=== PATIENT | female | born 1930 | race Caucasian/White ===

== ENCOUNTER 2016-03-31 08:48 | Inpatient (IN) | payer MEDICARE ==
[2016-03-31 09:33] LABS: ABSOLUTE BASOPHILS # (AUTO) 0.1 10^3/uL (0.0-0.2); ABSOLUTE EOSINOPHILS # (AUTO) 0.1 10^3/uL (0.0-0.6); ABSOLUTE LYMPHOCYTES (AUTO) 1.8 10^3/uL (0.5-4.7); ABSOLUTE MONOCYTES (AUTO) 1.3 10^3/uL (0.1-1.4); ABSOLUTE NEUT (AUTO) 7.6 10^3/uL (1.7-8.2); BASOPHILS % (AUTO) 0.8 % (0-2); EOSINOPHILS % (AUTO) 1.3 % (0-6); HEMOGLOBIN 11.1 g/dL (12.0-15.5); HGB HCT DIFFERENCE 0.3; LYMPHOCYTES % (AUTO) 16.2 % (13-45); MEAN CORPUSCULAR HEMOGLOBIN 30.9 pg (27.0-33.4); MEAN CORPUSCULAR HGB CONC 33.6 g/dL (32.0-36.0); MEAN CORPUSCULAR VOLUME 92 fl (80-97); MONOCYTES % (AUTO) 12.2 % (3-13); RED BLOOD COUNT 3.59 10^6/uL (3.72-5.28); RED CELL DISTRIBUTION WIDTH 14.7 % (11.5-14.0); SEGMENTED NEUTROPHILS % (AUTO) 69.5 % (42-78); WHITE BLOOD COUNT 10.9 10^3/uL (4.0-10.5)
--- NOTE | 2016-03-31 09:35 | ER Document Report ---
ED Respiratory Problem <KALEY GOLD - Last Filed: 03/31/16 11:41> - General Mode of Arrival: Medic Information source: Patient TRAVEL OUTSIDE OF THE [place] IN LAST 30 DAYS: No - HPI Patient complains to provider of: Short of breath Onset: Other - see above Duration: Worse/persistent Quality of pain: No pain Associated symptoms: Other - see narrative Similar symptoms previously: Yes Recently seen / treated by doctor: Yes <KAMLESH OLIVERA - Last Filed: 03/31/16 17:05> - General Chief Complaint: Breathing Difficulty Stated Complaint: DIFFICULTY BREATHING Notes: Patient is an 85 year old female that presents to the emergency department today with complaints of shortness of breath. EMS reports the patient was 85% on room air on their arrival. Patient states she has had to sleep in a chair the last month because she cannot lie flat. Patient states she is constipated. Patient denies any recent falls. (KAMLESH OLIVERA) - Related Data Allergies/Adverse Reactions: amlodipine besylate [From Lotrel] Allergy (Verified 11/17/12 09:30) RASH benazepril HCl [From Lotrel] Allergy (Verified 11/17/12 09:30) RASH Home Medications: Current Home Medications Diphenhydramine HCl [Unisom] 50 mg PO QHS PRN 03/31/16 [History] Furosemide [Lasix 20 mg Tablet] 20 mg PO BID 03/31/16 [History] Ipratropium/Albuterol Sulfate [Combivent Respimat 4 gm Mdi] 1 puff IH Q4 [History] Past Medical History - General Information source: Patient - Social History Smoking Status: Unknown if Ever Smoked Cigarette use (# per day): No Frequency of alcohol use: None Drug Abuse: None Lives with: Family Family History: Reviewed & Not Pertinent, Other - Asthma - Past Medical History Cardiac Medical History: Reports: Hx Hypertension Past Surgical History: Reports: Hx Abdominal Surgery - AAA STENT, HERNIA - Immunizations Hx Diphtheria, Pertussis, Tetanus Vaccination: No - unsure Hx Pneumococcal Vaccination: 12/28/13 <KAMLESH OLIVERA - Last Filed: 03/31/16 17:05> Review of Systems - Review of Systems Constitutional: No symptoms reported EENT: No symptoms reported Cardiovascular: No symptoms reported Respiratory: See HPI, Short of breath Gastrointestinal: See HPI, Constipation Genitourinary: No symptoms reported Female Genitourinary: No symptoms reported Musculoskeletal: No symptoms reported Skin: No symptoms reported Hematologic/Lymphatic: No symptoms reported Neurological/Psychological: No symptoms reported -: Yes All other systems reviewed and negative <KAMLESH OLIVERA - Last Filed: 03/31/16 17:05> Physical Exam <KALEY GOLD - Last Filed: 03/31/16 11:41> - General General appearance: Alert In distress: Mild - HEENT Head: Normocephalic, Atraumatic Eyes: Normal Cornea: Normal - Respiratory Respiratory status: Respiratory distress - mild, mild conversational dyspnea Chest status: Nontender Chest palpation: Other - Pectus excavatum - Cardiovascular Rhythm: Regular Heart sounds: Normal auscultation - Abdominal Inspection: Normal Distension: No distension Tenderness: Nontender - Back Back: Normal, Nontender - Extremities General lower extremity: Other - trace bilateral pedal edema, symmetric - Neurological Neuro grossly intact: Yes Cognition: Normal Orientation: AAOx4 - Psychological Associated symptoms: Normal affect, Normal mood - Skin Skin Temperature: Warm Skin Moisture: Dry Skin Color: Normal <KAMLESH OLIVERA - Last Filed: 03/31/16 17:05> - Vital signs Vitals: Resp BP Pulse Ox 25 H 203/104 H 93 03/31/16 08:51 03/31/16 08:51 03/31/16 08:51 (KALEY GOLD) (KAMLESH OLIVERA) - Skin Notes: no cellulitic component (KAMLESH OLIVERA) Course - Laboratory Result Diagrams: 03/31/16 08:52 03/31/16 08:52 <KALEY GOLD - Last Filed: 03/31/16 11:41> - Laboratory Result Diagrams: 03/31/16 08:52 03/31/16 08:52 <KAMLESH OLIVERA - Last Filed: 03/31/16 17:05> - Re-evaluation Re-evalutation: 03/31/16 11:40 I personally performed the services described in the documentation, reviewed and edited the documentation which was dictated to my scribe in my presence, and it accurately records my words and actions. Patient presents emergency department severe respiratory distress ambulance call from him 82% on room air with rails. Hypertensive 210/111 seen and quickly evaluated at the bedside severe respiratory distress chest x-ray showing congestive heart failure peripheral edema. Patient was immediately placed on 100 of Lasix nitroglycerin drip at 25 mics and BiPAP machine. Initial pH 7.31 PCO2 of 62.3 PO2 of 73.7 bicarbonate 30.4. Patient did extremely well on the BiPAP machine blood pressure with nitro drip came down to 110/62 so we held that 96% on BiPAP machine awake and alert with. No acute EKG changes or troponin elevation spoke with the attending physician was going admit her to the hospital to the [facility] unit on BiPAP machine further assessment and evaluation. (KALEY GOLD) - Vital Signs Vital signs: Temp Pulse Resp BP Pulse Ox 97.4 F 77 16 138/71 H 99 03/31/16 15:12 03/31/16 15:46 03/31/16 15:46 03/31/16 15:12 03/31/16 15:46 (KALEY GOLD) (KAMLESH OLIVERA) - Laboratory Laboratory results interpreted by me: 03/31/16 03/31/16 03/31/16 08:52 08:52 08:52 WBC 10.9 H RBC 3.59 L Hgb 11.1 L Hct 33.0 L RDW 14.7 H Carbonic Acid ABG pH ABG pCO2 ABG pO2 ABG HCO3 ABG Total CO2 ABG O2 Saturation Potassium 3.4 L Chloride 91 L Carbon Dioxide 32 H Glucose 214 H NT-Pro-B Natriuret Pep 8540 H 03/31/16 09:39 WBC RBC Hgb Hct RDW Carbonic Acid 1.88 H ABG pH 7.31 L ABG pCO2 62.3 H ABG pO2 73.7 L ABG HCO3 30.4 H ABG Total CO2 32.3 H ABG O2 Saturation 93.0 L Potassium Chloride Carbon Dioxide Glucose NT-Pro-B Natriuret Pep (KALEY GOLD) Critical Care Note - Critical Care Note Total time excluding time spent on procedures (mins): 60 <KALEY GOLD - Last Filed: 03/31/16 11:41> Scribe Documentation - Scribe Written by Tiffanie:: Tiffanie Ventura, 1601 (03/31/2016) acting as scribe for :: Juan J <KAMLESH OLIVERA - Last Filed: 03/31/16 17:05>
[2016-03-31 09:45] LABS: ANION GAP 15 (5-19); BLOOD UREA NITROGEN 17 mg/dL (7-20); CALCIUM 9.2 mg/dL (8.4-10.2); CARBON DIOXIDE 32 mmol/L (22-30); CHLORIDE 91 mmol/L (98-107); CREATININE RESULT 0.86 mg/dL (0.52-1.25); GLUCOSE 214 mg/dL (75-110); POTASSIUM 3.4 mmol/L (3.6-5.0); SODIUM 137.9 mmol/L (137-145)
[2016-03-31] MEDS ORDERED: FUROSEMIDE INJ/PF 100 MG/10 ML SDV IV ONE (09:50)
[2016-03-31] MEDS ORDERED: NITROGLYCERIN/D5W 250 ML IV PRN (09:50)
[2016-03-31 09:53] LABS: ARTERIAL BLOOD BASE EXCESS 2.8 mmol/L
[2016-03-31 09:54] LABS: CREATINE KINASE MB 0.4 ng/mL (<4.55)
[2016-03-31] MEDS ORDERED: CEFTRIAXONE INJ 1000 MG VIAL IV ONE (09:56)
[2016-03-31] MEDS ORDERED: AZITHROMYCIN INJ 500 MG VIAL IV ONE (09:57)
[2016-03-31 09:59] LABS: TROPONIN I 0.064 ng/mL
[2016-03-31] MEDS ORDERED: POTASSIUM CHLORIDE 10 MEQ TABLET.SA PO ONE (13:30)
[2016-03-31] MEDS ORDERED: ALBUTEROL SULFATE 0.083% NEB 2.5 MG/3 ML AMPUL NEB PRN ×2 (13:45→21:18)
[2016-03-31] MEDS ORDERED: FUROSEMIDE INJ/PF 20 MG/2 ML SDV IV ONE (14:00)
[2016-03-31] MEDS ORDERED: DOXYCYCLINE HYCLATE 100 MG TABLET PO ONE (14:00)
[2016-03-31] MEDS ORDERED: (PENDING PHARMACY ID) (Clonidine Hcl [Catapres 0.3 Mg Tablet] 0.3 MG) PO SCH (14:00)
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
[2016-03-31] MEDS ORDERED: ENOXAPARIN SODIUM INJ 30 MG/0.3 ML DISP.SYRIN SUBCUT ONE (15:00)
[2016-03-31 16:08] LABS: CREATINE KINASE MB 0.53 ng/mL (<4.55)
[2016-03-31 16:15] LABS: TROPONIN I 0.054 ng/mL
[2016-03-31] MEDS: DOCUSATE SODIUM 100 MG CAPSULE PO SCH (17:20)
[2016-03-31] MEDS ORDERED: LORAZEPAM INJ 2 MG/1 ML VIAL ONE (18:55)
[2016-03-31] MEDS ORDERED: LORAZEPAM INJ 2 MG/1 ML VIAL IV ONE (18:57)
--- NOTE | 2016-03-31 19:04 | Progress Note ---
Provider Note Provider Note: Resp failure: Repeat ABG. Check CT chest. Hold ARB due to contrast.
[2016-03-31 20:10] LABS: ARTERIAL BLOOD BASE EXCESS -0.6 mmol/L; ARTERIAL BLOOD O2 SATURATION 91.4 % (94-98)
[2016-03-31] MEDS: CARVEDILOL 3.125 MG TABLET PO SCH (21:28)
[2016-03-31] MEDS: FUROSEMIDE INJ/PF 20 MG/2 ML SDV IV SCH (21:28)
[2016-03-31 21:32] LABS: CREATINE KINASE MB 0.71 ng/mL (<4.55)
[2016-03-31 21:37] LABS: TROPONIN I 0.058 ng/mL
[2016-03-31] MEDS ORDERED: PHARMACY COMMUNICATION ORDER MC SCH (21:45)
[2016-03-31] MEDS ORDERED: CEFEPIME 2 GM/D5W RTU 50 ML IV SCH (22:00)
[2016-03-31] MEDS ORDERED: DOXYCYCLINE HYCLATE 100 MG TABLET PO SCH (22:00)
[2016-03-31] MEDS ORDERED: AZTREONAM INJ 1 GM VIAL IV PRN (22:00)
[2016-03-31] MEDS ORDERED: AZTREONAM 2 GM in DEXTROSE 5%-WATER 100 ML IV SCH (22:00)
[2016-03-31] MEDS ORDERED: AZTREONAM INJ 1 GM VIAL IV SCH (22:00)
[2016-03-31] MEDS ORDERED: CLONIDINE HCL 0.1 MG TABLET PO SCH (22:00)
[2016-03-31 22:02] LABS: ADD ON TESTING BLD IN LAB ACKNOWLEDGE
[2016-03-31 22:11] LABS: MAGNESIUM 1.9 mg/dL (1.6-2.3)
[2016-03-31] MEDS ORDERED: CLONIDINE 0.3 MG/24 HR PATCH.TDWK TD SCH (22:15)
[2016-03-31] MEDS ORDERED: CLONIDINE 0.3 MG/24 HR PATCH.TDWK TD ONE (22:45)
[2016-03-31] MEDS: METOPROLOL TARTRATE PF/INJ 5 MG/5 ML SDV IV SCH (23:56)
[2016-04-01 01:10] LABS: VENOUS BLOOD BASE EXCESS 7.1 mmol/L; VENOUS BLOOD HCO3 34.9 mmol/L (20-32); VENOUS BLOOD PH 7.33 (7.30-7.42)
[2016-04-01 01:12] LABS: VENOUS BLOOD PCO2 67.5 mmHg (35-63)
[2016-04-01] MEDS ORDERED: AZTREONAM INJ 1 GM VIAL IV PRN (01:55)
[2016-04-01] MEDS ORDERED: CEFEPIME 2 GM/D5W RTU 2 GM/50 ML RTUPB IV SCH (02:00)
[2016-04-01] MEDS ORDERED: AZTREONAM 2 GM in DEXTROSE 5%-WATER 100 ML IV SCH ×2 (03:00→10:00)
[2016-04-01 03:19] LABS: VENOUS BLOOD BASE EXCESS 7.7 mmol/L; VENOUS BLOOD HCO3 34.2 mmol/L (20-32); VENOUS BLOOD PCO2 57.7 mmHg (35-63); VENOUS BLOOD PH 7.39 (7.30-7.42)
[2016-04-01 03:30] LABS: ALANINE AMINOTRANSFERASE 192 U/L (9-52); ALBUMIN 3.4 g/dL (3.5-5.0); ALKALINE PHOSPHATASE 144 U/L (38-126); ANION GAP 12 (5-19); ASPARTATE AMINO TRANSFERASE 197 U/L (14-36); BILIRUBIN,TOTAL 0.4 mg/dL (0.2-1.3); BLOOD UREA NITROGEN 24 mg/dL (7-20); CARBON DIOXIDE 35 mmol/L (22-30); CHLORIDE 91 mmol/L (98-107); CREATININE RESULT 1.13 mg/dL (0.52-1.25); GLUCOSE 126 mg/dL (75-110); POTASSIUM 3.8 mmol/L (3.6-5.0); SODIUM 137.6 mmol/L (137-145); TOTAL PROTEIN 7.5 g/dL (6.3-8.2)
[2016-04-01 03:31] LABS: ABSOLUTE LYMPHOCYTES (AUTO) 1.1 10^3/uL (0.5-4.7); ABSOLUTE MONOCYTES (AUTO) 1.4 10^3/uL (0.1-1.4); ABSOLUTE NEUT (AUTO) 9.9 10^3/uL (1.7-8.2); BASOPHILS % (AUTO) 0.1 % (0-2); HEMATOCRIT 32.1 % (36.0-47.0); HGB HCT DIFFERENCE 0.9; LYMPHOCYTES % (AUTO) 8.9 % (13-45); MEAN CORPUSCULAR HEMOGLOBIN 30.7 pg (27.0-33.4); MEAN CORPUSCULAR HGB CONC 34.1 g/dL (32.0-36.0); MEAN CORPUSCULAR VOLUME 90 fl (80-97); MONOCYTES % (AUTO) 11.4 % (3-13); RED BLOOD COUNT 3.58 10^6/uL (3.72-5.28); RED CELL DISTRIBUTION WIDTH 14.5 % (11.5-14.0); SEGMENTED NEUTROPHILS % (AUTO) 79.6 % (42-78); WHITE BLOOD COUNT 12.5 10^3/uL (4.0-10.5)
[2016-04-01 03:42] LABS: CREATINE KINASE MB 1.15 ng/mL (<4.55); TROPONIN I 0.111 ng/mL
[2016-04-01 07:09] LABS: VENOUS BLOOD BASE EXCESS 11.1 mmol/L; VENOUS BLOOD PCO2 63.2 mmHg (35-63); VENOUS BLOOD PH 7.4 (7.30-7.42)
[2016-04-01] MEDS ORDERED: ENOXAPARIN SODIUM INJ 40 MG/0.4 ML DISP.SYRIN SUBCUT SCH (08:00)
[2016-04-01] MEDS ORDERED: PHARMACY COMMUNICATION ORDER MC NR (08:15)
[2016-04-01] MEDS: IPRATROPIUM/ALBUTEROL 0.5-2.5 MG/3 ML AMPUL NEB SCH ×3 (08:31→20:54)
[2016-04-01] MEDS: ENOXAPARIN SODIUM INJ 30 MG/0.3 ML DISP.SYRIN SUBCUT SCH (09:14)
[2016-04-01] MEDS: ASPIRIN 325 MG TABLET, ENT COATED PO SCH (09:16)
[2016-04-01] MEDS: DOCUSATE SODIUM 100 MG CAPSULE PO SCH ×2 (09:16→18:41)
[2016-04-01] MEDS: POTASSIUM CHLORIDE 10 MEQ TABLET.SA PO SCH (09:16)
[2016-04-01] MEDS: LEVOTHYROXINE SODIUM 0.05 MG TABLET PO SCH (09:17)
[2016-04-01] MEDS: FUROSEMIDE INJ/PF 20 MG/2 ML SDV IV SCH ×3 (09:18→22:30)
[2016-04-01] MEDS: METOPROLOL TARTRATE PF/INJ 5 MG/5 ML SDV IV SCH (09:18)
[2016-04-01] MEDS: LEVOFLOXACIN 750 MG TABLET PO SCH (09:18)
[2016-04-01] MEDS ORDERED: CEFEPIME HCL 2 GM in DEXTROSE 5%-WATER 50 ML IV SCH (10:00)
[2016-04-01] MEDS ORDERED: CLONIDINE HCL 0.1 MG TABLET ONE (13:38)
[2016-04-01] MEDS ORDERED: CLONIDINE HCL 0.2 MG TABLET PO ONE (14:15)
[2016-04-01] MEDS ORDERED: NITROGLYCERIN 2% OINTMENT 1 GM PACKET TP ONE (14:15)
[2016-04-01] MEDS: AZTREONAM 1 GM in DEXTROSE 5%-WATER 50 ML IV SCH ×2 (15:07→22:29)
[2016-04-01] MEDS: FLUTICASONE/SALMETEROL DISKUS 100-50 MCG/DOSE IH SCH (15:43)
[2016-04-01] MEDS ORDERED: ONDANSETRON HCL INJ/PF 4 MG/2 ML SDV IV PRN (16:01)
[2016-04-01] MEDS ORDERED: CARVEDILOL 3.125 MG TABLET PO ONE (17:00)
[2016-04-01] MEDS: NITROGLYCERIN 2% OINTMENT 1 GM PACKET TP SCH ×2 (18:37→23:45)
[2016-04-01] MEDS ORDERED: CLONIDINE HCL 0.1 MG TABLET PO SCH (22:00)
[2016-04-01] MEDS: CLONIDINE HCL 0.1 MG TABLET PO SCH (22:36)
[2016-04-01] MEDS: CARVEDILOL 3.125 MG TABLET PO SCH (22:38)
[2016-04-02] MEDS: AZTREONAM 1 GM in DEXTROSE 5%-WATER 50 ML IV SCH ×3 (06:08→22:29)
[2016-04-02] MEDS: NITROGLYCERIN 2% OINTMENT 1 GM PACKET TP SCH ×3 (06:09→17:36)
[2016-04-02] MEDS: FUROSEMIDE INJ/PF 20 MG/2 ML SDV IV SCH (06:12)
[2016-04-02 06:40] LABS: ABSOLUTE BASOPHILS # (AUTO) 0.1 10^3/uL (0.0-0.2); ABSOLUTE MONOCYTES (AUTO) 1.6 10^3/uL (0.1-1.4); ABSOLUTE NEUT (AUTO) 10.5 10^3/uL (1.7-8.2); BASOPHILS % (AUTO) 0.4 % (0-2); HEMATOCRIT 31.4 % (36.0-47.0); HEMOGLOBIN 10.5 g/dL (12.0-15.5); HGB HCT DIFFERENCE 0.1; LYMPHOCYTES % (AUTO) 7.7 % (13-45); MEAN CORPUSCULAR HEMOGLOBIN 29.9 pg (27.0-33.4); MEAN CORPUSCULAR HGB CONC 33.3 g/dL (32.0-36.0); MEAN CORPUSCULAR VOLUME 90 fl (80-97); MONOCYTES % (AUTO) 12.3 % (3-13); RED BLOOD COUNT 3.49 10^6/uL (3.72-5.28); RED CELL DISTRIBUTION WIDTH 14.6 % (11.5-14.0); SEGMENTED NEUTROPHILS % (AUTO) 79.6 % (42-78); WHITE BLOOD COUNT 13.2 10^3/uL (4.0-10.5)
[2016-04-02 06:51] LABS: BLOOD UREA NITROGEN 25 mg/dL (7-20); CALCIUM 9.3 mg/dL (8.4-10.2); CHLORIDE 88 mmol/L (98-107); CREATININE RESULT 1.05 mg/dL (0.52-1.25); GLUCOSE 96 mg/dL (75-110); POTASSIUM 3.1 mmol/L (3.6-5.0); SODIUM 140.5 mmol/L (137-145)
[2016-04-02] MEDS ORDERED: FUROSEMIDE INJ/PF 20 MG/2 ML SDV IV SCH (07:58)
[2016-04-02] MEDS: IPRATROPIUM/ALBUTEROL 0.5-2.5 MG/3 ML AMPUL NEB SCH ×3 (08:25→20:37)
[2016-04-02] MEDS ORDERED: POTASSIUM CHLORIDE 10 MEQ TABLET.SA PO ONE (09:30)
[2016-04-02] MEDS: ASPIRIN 325 MG TABLET, ENT COATED PO SCH (09:52)
[2016-04-02] MEDS: DOCUSATE SODIUM 100 MG CAPSULE PO SCH ×2 (09:53→17:04)
[2016-04-02] MEDS: VALSARTAN 160 MG TABLET PO SCH (09:53)
[2016-04-02] MEDS: LEVOTHYROXINE SODIUM 0.05 MG TABLET PO SCH (09:53)
[2016-04-02] MEDS: ENOXAPARIN SODIUM INJ 30 MG/0.3 ML DISP.SYRIN SUBCUT SCH (09:54)
[2016-04-02] MEDS: CLONIDINE HCL 0.1 MG TABLET PO SCH ×2 (10:00→22:28)
[2016-04-02] MEDS ORDERED: CARVEDILOL 3.125 MG TABLET PO SCH (10:00)
[2016-04-02 10:23] LABS: ARTERIAL BLOOD BASE EXCESS 16.5 mmol/L
[2016-04-02] MEDS: FLUTICASONE/SALMETEROL DISKUS 100-50 MCG/DOSE IH SCH (13:14)
[2016-04-02] MEDS: POTASSIUM CHLORIDE 10 MEQ TABLET.SA PO SCH (13:16)
[2016-04-02] MEDS ORDERED: FUROSEMIDE INJ/PF 40 MG/4 ML SDV IV SCH (14:00)
[2016-04-02] MEDS: FUROSEMIDE 20 MG TABLET PO SCH (17:36)
--- NOTE | 2016-04-02 21:46 | PDOC PROGRESS REPORT ---
Subjective Progress Note for:: 04/01/16 Subjective:: Patient was agitated overnight required BiPAP. Patient reports shortness of breath and nausea. She reports that while she has not been consult restricting at home, she is also not been weighing at home. She reports that home health never came to her home. Patient denies chest pain, abdominal pain, vomiting, fevers, chills, diarrhea, constipation, headache, new onset weakness. Physical Exam Vital Signs: Temp Pulse Resp BP Pulse Ox 97.8 F 85 20 186/84 H 96 04/01/16 08:04 04/01/16 07:00 04/01/16 08:06 04/01/16 08:01 04/01/16 08:06 Intake & Output 03/31/16 04/01/16 04/02/16 06:59 06:59 06:59 Intake Total 118 Output Total 1700 Balance -1582 Weight 44.5 kg Exam: General: Awake alert and oriented x3, but somewhat confused, moderate respiratory distress, acutely ill-appearing, tachypneic HEENT: AT/NC, PERRL, EOMI, oropharynx is moist, pink, no scleral icterus, no conjunctival injection Neck: + JVD, trachea midline Chest: Crackles bilaterally CV: Regular rate and rhythm, normal S1 and S2, no murmur, rub, or gallop Abdomen: Soft, nontender to palpation, nondistended, active bowel sounds; no rebound, rigidity, or guarding Extremities: No cyanosis, clubbing , 3+ pitting edema bilaterally Neuro: Cranial nerves II through XII are grossly intact without focal deficits; awake alert and oriented x3 Psych: Anxious Results Laboratory Results: 04/01/16 03:05 04/01/16 03:05 03/31/16 03/31/16 04/01/16 20:05 21:01 01:05 WBC RBC Hgb Hct MCV MCH MCHC RDW Plt Count Seg Neutrophils % Lymphocytes % Monocytes % Eosinophils % Basophils % Absolute Neutrophils Absolute Lymphocytes Absolute Monocytes Absolute Eosinophils Absolute Basophils Carbonic Acid 1.79 H HCO3/H2CO3 Ratio 15:1 ABG pH 7.28 L ABG pCO2 59.4 H ABG pO2 69.7 L ABG HCO3 27.1 H ABG O2 Saturation 91.4 L ABG Base Excess -0.6 VBG pH 7.33 VBG pCO2 67.5 H* VBG HCO3 34.9 H VBG Base Excess 7.1 FiO2 34 M Sodium Potassium Chloride Carbon Dioxide Anion Gap BUN Creatinine Est GFR ( Amer) Est GFR (Non-Af Amer) Glucose Calcium Magnesium 1.9 Total Bilirubin AST ALT Alkaline Phosphatase Total Protein Albumin 04/01/16 04/01/16 04/01/16 03:05 03:05 03:05 WBC 12.5 H RBC 3.58 L Hgb 11.0 L Hct 32.1 L MCV 90 MCH 30.7 MCHC 34.1 RDW 14.5 H Plt Count 329 Seg Neutrophils % 79.6 H Lymphocytes % 8.9 L Monocytes % 11.4 Eosinophils % 0.0 Basophils % 0.1 Absolute Neutrophils 9.9 H Absolute Lymphocytes 1.1 Absolute Monocytes 1.4 Absolute Eosinophils 0.0 Absolute Basophils 0.0 Carbonic Acid HCO3/H2CO3 Ratio ABG pH ABG pCO2 ABG pO2 ABG HCO3 ABG O2 Saturation ABG Base Excess VBG pH 7.39 VBG pCO2 57.7 VBG HCO3 34.2 H VBG Base Excess 7.7 FiO2 Sodium 137.6 Potassium 3.8 Chloride 91 L Carbon Dioxide 35 H Anion Gap 12 BUN 24 H Creatinine 1.13 Est GFR ( Amer) 55 L Est GFR (Non-Af Amer) 46 L Glucose 126 H Calcium 9.0 Magnesium Total Bilirubin 0.4 AST 197 H ALT 192 H Alkaline Phosphatase 144 H Total Protein 7.5 Albumin 3.4 L 04/01/16 06:48 WBC RBC Hgb Hct MCV MCH MCHC RDW Plt Count Seg Neutrophils % Lymphocytes % Monocytes % Eosinophils % Basophils % Absolute Neutrophils Absolute Lymphocytes Absolute Monocytes Absolute Eosinophils Absolute Basophils Carbonic Acid HCO3/H2CO3 Ratio ABG pH ABG pCO2 ABG pO2 ABG HCO3 ABG O2 Saturation ABG Base Excess VBG pH 7.40 VBG pCO2 63.2 H VBG HCO3 38.0 H VBG Base Excess 11.1 FiO2 Sodium Potassium Chloride Carbon Dioxide Anion Gap BUN Creatinine Est GFR ( Amer) Est GFR (Non-Af Amer) Glucose Calcium Magnesium Total Bilirubin AST ALT Alkaline Phosphatase Total Protein Albumin 03/31/16 03/31/16 03/31/16 14:59 14:59 21:01 Creatine Kinase 21 L 25 L CK-MB (CK-2) 0.53 Troponin I 0.054 03/31/16 04/01/1604/01/17 21:01 03:05 03:05 Creatine Kinase 23 L CK-MB (CK-2) 0.71 1.15 Troponin I 0.058 0.111 Impressions: Chest/Abdomen CTA 03/31/16 00:00 IMPRESSION: Scattered pulmonary nodularity with bilateral distribution, largest nodule measures 15 mm in the lateral segment of the left lower lobe. There is diffuse increased interstitial prominence and some areas of early consolidation present in both lower lobes. There is a moderate right pleural effusion and small left pleural effusion. Left hilar and subcarinal mediastinal adenopathy. NO PULMONARY EMBOLI. Chest X-Ray 04/01/16 06:00 IMPRESSION: Decrease in fluid overload/ congestive failure pattern compared to 03/31/2016. Increasing right basilar airspace disease atelectasis versus pneumonia. Assessment & Plan - Diagnosis (1) Acute on chronic diastolic (congestive) heart failure Is this a current diagnosis for this admission?: YesPlan: This is acute on chronic diastolic with preserved EF. We'll aggressively diurese patient at this time. Patient currently on Coreg, Lasix, topical nitroglycerin, and Diovan. Will set up transition of care nurse to follow patient as an outpatient. And again will have discharge planning will ascertain why home health did not see this patient. (2) Acute hypoxemic respiratory failure Is this a current diagnosis for this admission?: YesPlan: BiPAP now and repeat chest x-ray in a.m. (3) Hospital acquired PNA Is this a current diagnosis for this admission?: YesPlan: Patient with right lower lobe pneumonia possibly secondary to hospital-acquired pneumonia. Patient has been hospitalized within the last month. Will continue patient on Azactam and Levaquin. Will hold on vancomycin given patient's renal function. (4) CAD (coronary artery disease) Qualifiers: Coronary Disease-Associated Artery/Lesion type: [place] artery [place] vs. transplanted heart: [place] heart Associated angina: without angina Qualified Code(s): I25.10 - Atherosclerotic heart disease of [place] coronary artery without angina pectoris Is this a current diagnosis for this admission?: Yes (5) COPD (chronic obstructive pulmonary disease) Qualifiers: COPD type: unspecified COPD Qualified Code(s): J44.9 - Chronic obstructive pulmonary disease, unspecified Is this a current diagnosis for this admission?: YesPlan: Will require breathing treatments and possibly corticosteroids. (6) Hypertension Qualifiers: Hypertension type: essential hypertension Qualified Code(s): I10 - Essential (primary) hypertension Is this a current diagnosis for this admission?: YesPlan: Patient currently with severe rebound hypertension likely secondary to not receiving her clonidine. Will give clonidine now in place on clonidine 0.2 by mouth every 12 and continue clonidine patch with plans to taper patient by a third every 3 days until she is off of her clonidine orally. (7) Hypothyroidism Qualifiers: Hypothyroidism type: unspecified Qualified Code(s): E03.9 - Hypothyroidism, unspecified Is this a current diagnosis for this admission?: YesPlan: Continue Synthroid (8) Malnutrition of mild degree Is this a current diagnosis for this admission?: YesPlan: Supplementation as tolerated - Time Time Spent with patient: 35 or more minutes Medications reviewed and adjusted accordingly: Yes
--- NOTE | 2016-04-02 21:53 | PDOC PROGRESS REPORT ---
Subjective Progress Note for:: 04/02/16 Subjective:: Patient reports she's breathing somewhat better today. Patient denies chest pain, abdominal pain, nausea, vomiting, fevers, chills, diarrhea, constipation, headache, new onset weakness. Physical Exam Vital Signs: Temp Pulse Resp BP Pulse Ox 97.8 F 109 H 19 181/91 H 99 04/02/16 03:43 04/02/16 07:00 04/02/16 03:43 04/02/16 03:43 04/02/16 05:00 Intake & Output 04/01/16 04/02/16 04/03/16 06:59 06:59 06:59 Intake Total 118 665 Output Total 1700 3000 Balance -1582 -2335 Weight 44.5 kg 45 kg Exam: General: Awake alert and oriented x3, no acute respiratory distress HEENT: AT/NC, PERRL, EOMI, oropharynx is moist, pink, no scleral icterus, no conjunctival injection Neck: + JVD, trachea midline Chest: Diminished right base, occasional crackles, right lower lobe rhonchi CV: Regular rate and rhythm, normal S1 and S2, no murmur, rub, or gallop Abdomen: Soft, nontender to palpation, nondistended, active bowel sounds; no rebound, rigidity, or guarding Extremities: No cyanosis, clubbing , trace edema bilaterally Neuro: Cranial nerves II through XII are grossly intact without focal deficits; awake alert and oriented x3 Psych: Anxious Results Laboratory Results: 04/02/16 06:08 04/02/16 06:08 04/02/16 04/02/16 06:08 06:08 WBC 13.2 H RBC 3.49 L Hgb 10.5 L Hct 31.4 L MCV 90 MCH 29.9 MCHC 33.3 RDW 14.6 H Plt Count 354 Seg Neutrophils % 79.6 H Lymphocytes % 7.7 L Monocytes % 12.3 Eosinophils % 0.0 Basophils % 0.4 Absolute Neutrophils 10.5 H Absolute Lymphocytes 1.0 Absolute Monocytes 1.6 H Absolute Eosinophils 0.0 Absolute Basophils 0.1 Sodium 140.5 Potassium 3.1 L Chloride 88 L Carbon Dioxide > 40 H* Anion Gap 12 BUN 25 H Creatinine 1.05 Est GFR ( Amer) > 60 Est GFR (Non-Af Amer) 50 L Glucose 96 Calcium 9.3 03/31/16 03/31/16 03/31/16 14:59 14:59 21:01 Creatine Kinase 21 L 25 L CK-MB (CK-2) 0.53 Troponin I 0.054 NT-Pro-B Natriuret Pep 03/31/16 04/01/16 04/01/16 21:01 03:05 03:05 Creatine Kinase 23 L CK-MB (CK-2) 0.71 1.15 Troponin I 0.058 0.111 NT-Pro-B Natriuret Pep 04/02/16 06:08 Creatine Kinase CK-MB (CK-2) Troponin I NT-Pro-B Natriuret Pep 4110 H Impressions: Chest/Abdomen CTA 03/31/16 00:00 IMPRESSION: Scattered pulmonary nodularity with bilateral distribution, largest nodule measures 15 mm in the lateral segment of the left lower lobe. There is diffuse increased interstitial prominence and some areas of early consolidation present in both lower lobes. There is a moderate right pleural effusion and small left pleural effusion. Left hilar and subcarinal mediastinal adenopathy. NO PULMONARY EMBOLI. Chest X-Ray 04/01/16 06:00 IMPRESSION: Decrease in fluid overload/ congestive failure pattern compared to 03/31/2016. Increasing right basilar airspace disease atelectasis versus pneumonia. Assessment & Plan - Diagnosis (1) Acute hypoxemic respiratory failure Is this a current diagnosis for this admission?: YesPlan: Continue to wean oxygen and BiPAP as needed. Patient did well on BiPAP overnight. Will check an ABG for her reported measured CO2 greater than 40. (2) Acute on chronic diastolic (congestive) heart failure Is this a current diagnosis for this admission?: YesPlan: We'll transition patient to oral Lasix today. Continue on Coreg, Lasix, valsartan, and nitroglycerin. (3) Hospital acquired PNA Is this a current diagnosis for this admission?: YesPlan: We'll consider transitioning patient to cefepime or Zosyn for gram-negative coverage as opposed to Azactam. At this time coverage for MRSA, but concerns for patient's underlying renal function. Pending sputum culture. Continue polar toileting. Repeat chest x-ray reveals right lower lobe consolidation. (4) CAD (coronary artery disease) Qualifiers: Coronary Disease-Associated Artery/Lesion type: [place] artery [place] vs. transplanted heart: [place] heart Associated angina: without angina Qualified Code(s): I25.10 - Atherosclerotic heart disease of [place] coronary artery without angina pectoris Is this a current diagnosis for this admission?: Yes (5) COPD (chronic obstructive pulmonary disease) Qualifiers: COPD type: unspecified COPD Qualified Code(s): J44.9 - Chronic obstructive pulmonary disease, unspecified Is this a current diagnosis for this admission?: YesPlan: Will require breathing treatments and possibly corticosteroids if no improvement. (6) Hypertension Qualifiers: Hypertension type: essential hypertension Qualified Code(s): I10 - Essential (primary) hypertension Is this a current diagnosis for this admission?: YesPlan: Improved control. Improving with diuresis. Continue clonidine, nitroglycerin, Coreg, clonidine, and valsartan. Patient currently with clonidine patch with plans to taper patient by a third every 3 days until she is off of her clonidine orally. (7) Hypothyroidism Qualifiers: Hypothyroidism type: unspecified Qualified Code(s): E03.9 - Hypothyroidism, unspecified Is this a current diagnosis for this admission?: Yes - Time Time Spent with patient: 35 or more minutes Medications reviewed and adjusted accordingly: Yes
[2016-04-02] MEDS: CARVEDILOL 6.25 MG TABLET PO SCH (22:28)
[2016-04-03] MEDS: NITROGLYCERIN 2% OINTMENT 1 GM PACKET TP SCH ×4 (00:30→17:38)
[2016-04-03] MEDS: AZTREONAM 1 GM in DEXTROSE 5%-WATER 50 ML IV SCH ×3 (05:28→21:43)
[2016-04-03 06:49] LABS: ABSOLUTE BASOPHILS # (AUTO) 0.1 10^3/uL (0.0-0.2); ABSOLUTE LYMPHOCYTES (AUTO) 1.1 10^3/uL (0.5-4.7); ABSOLUTE MONOCYTES (AUTO) 1.9 10^3/uL (0.1-1.4); ABSOLUTE NEUT (AUTO) 9.9 10^3/uL (1.7-8.2); BASOPHILS % (AUTO) 0.5 % (0-2); EOSINOPHILS % (AUTO) 0.2 % (0-6); HEMATOCRIT 29.5 % (36.0-47.0); HEMOGLOBIN 9.9 g/dL (12.0-15.5); HGB HCT DIFFERENCE 0.2; LYMPHOCYTES % (AUTO) 8.7 % (13-45); MEAN CORPUSCULAR HGB CONC 33.6 g/dL (32.0-36.0); MEAN CORPUSCULAR VOLUME 89 fl (80-97); MONOCYTES % (AUTO) 14.3 % (3-13); RED BLOOD COUNT 3.31 10^6/uL (3.72-5.28); RED CELL DISTRIBUTION WIDTH 14.6 % (11.5-14.0); SEGMENTED NEUTROPHILS % (AUTO) 76.3 % (42-78)
[2016-04-03 07:13] LABS: BLOOD UREA NITROGEN 29 mg/dL (7-20); CALCIUM 9.3 mg/dL (8.4-10.2); CHLORIDE 88 mmol/L (98-107); CREATININE RESULT 1.13 mg/dL (0.52-1.25); GLUCOSE 117 mg/dL (75-110); MAGNESIUM 1.7 mg/dL (1.6-2.3); SODIUM 138.9 mmol/L (137-145)
[2016-04-03 07:26] LABS: ANION GAP 8 (5-19)
[2016-04-03 07:29] LABS: CARBON DIOXIDE 43 mmol/L (22-30)
[2016-04-03] MEDS: IPRATROPIUM/ALBUTEROL 0.5-2.5 MG/3 ML AMPUL NEB SCH ×3 (08:51→19:57)
[2016-04-03 10:04] LABS: ANION GAP 13 (5-19); CARBON DIOXIDE 40 mmol/L (22-30)
[2016-04-03] MEDS: LEVOFLOXACIN 750 MG TABLET PO SCH (10:32)
[2016-04-03] MEDS: MAGNESIUM OXIDE 400 MG TABLET PO SCH ×2 (10:32→17:37)
[2016-04-03] MEDS: POTASSIUM CHLORIDE 10 MEQ TABLET.SA PO SCH (10:33)
[2016-04-03] MEDS: LEVOTHYROXINE SODIUM 0.05 MG TABLET PO SCH (10:33)
[2016-04-03] MEDS: DOCUSATE SODIUM 100 MG CAPSULE PO SCH ×2 (10:33→17:37)
[2016-04-03] MEDS: ASPIRIN 325 MG TABLET, ENT COATED PO SCH (10:33)
[2016-04-03] MEDS: CARVEDILOL 6.25 MG TABLET PO SCH ×2 (10:34→21:43)
[2016-04-03] MEDS: ENOXAPARIN SODIUM INJ 30 MG/0.3 ML DISP.SYRIN SUBCUT SCH (10:35)
[2016-04-03] MEDS: CLONIDINE HCL 0.1 MG TABLET PO SCH (10:35)
[2016-04-03] MEDS: FUROSEMIDE 20 MG TABLET PO SCH ×2 (10:35→17:37)
[2016-04-03] MEDS: FLUTICASONE/SALMETEROL DISKUS 100-50 MCG/DOSE IH SCH (10:36)
[2016-04-03] MEDS: VALSARTAN 160 MG TABLET PO SCH (10:37)
--- NOTE | 2016-04-03 18:48 | PDOC PROGRESS REPORT ---
Subjective Progress Note for:: 04/03/16 Subjective:: Patient reports she is breathing much better. Patient denies chest pain, abdominal pain, nausea, vomiting, fevers, chills, diarrhea, constipation, headache, new onset weakness. Physical Exam Vital Signs: Temp Pulse Resp BP Pulse Ox 98.9 F 102 H 20 143/69 H 99 04/03/16 04:08 04/03/16 04:08 04/03/16 04:08 04/03/16 04:08 04/03/16 07:00 Intake & Output 04/02/16 04/03/16 04/04/16 06:59 06:59 06:59 Intake Total 665 400 Output Total 3000 1250 Balance -2335 -850 Weight 45 kg 43.5 kg Exam: General: Awake alert and oriented x3, no acute respiratory distress HEENT: AT/NC, PERRL, EOMI, oropharynx is moist, pink, no scleral icterus, no conjunctival injection Neck: noJVD, trachea midline Chest: right lower lobe rhonchi CV: Regular rate and rhythm, normal S1 and S2, no murmur, rub, or gallop Abdomen: Soft, nontender to palpation, nondistended, active bowel sounds; no rebound, rigidity, or guarding Extremities: No cyanosis, clubbing or edema Neuro: Cranial nerves II through XII are grossly intact without focal deficits; awake alert and oriented x3 Psych: Normal mood and affect Results Laboratory Results: 04/03/16 06:15 04/03/16 06:15 04/02/16 04/02/16 04/03/16 06:08 09:45 06:15 WBC 13.0 H RBC 3.31 L Hgb 9.9 L Hct 29.5 L MCV 89 MCH 30.0 MCHC 33.6 RDW 14.6 H Plt Count 346 Seg Neutrophils % 76.3 Lymphocytes % 8.7 L Monocytes % 14.3 H Eosinophils % 0.2 Basophils % 0.5 Absolute Neutrophils 9.9 H Absolute Lymphocytes 1.1 Absolute Monocytes 1.9 H Absolute Eosinophils 0.0 Absolute Basophils 0.1 Carbonic Acid 1.51 H HCO3/H2CO3 Ratio 27:1 ABG pH 7.53 H ABG pCO2 50.2 H ABG pO2 99.1 ABG HCO3 41.2 H ABG O2 Saturation 98.0 ABG Base Excess 16.5 FiO2 4L Sodium Potassium Chloride Carbon Dioxide Anion Gap BUN Creatinine Est GFR ( Amer) Est GFR (Non-Af Amer) Glucose Calcium Magnesium 1.7 04/03/16 06:15 WBC RBC Hgb Hct MCV MCH MCHC RDW Plt Count Seg Neutrophils % Lymphocytes % Monocytes % Eosinophils % Basophils % Absolute Neutrophils Absolute Lymphocytes Absolute Monocytes Absolute Eosinophils Absolute Basophils Carbonic Acid HCO3/H2CO3 Ratio ABG pH ABG pCO2 ABG pO2 ABG HCO3 ABG O2 Saturation ABG Base Excess FiO2 Sodium 138.9 Potassium 4.0 Chloride 88 L Carbon Dioxide 43 H* Anion Gap 8 BUN 29 H Creatinine 1.13 Est GFR ( Amer) 55 L Est GFR (Non-Af Amer) 46 L Glucose 117 H Calcium 9.3 Magnesium 1.7 03/31/16 03/31/16 03/31/16 14:59 14:59 21:01 Creatine Kinase 21 L 25 L CK-MB (CK-2) 0.53 Troponin I 0.054 NT-Pro-B Natriuret Pep 03/31/16 04/01/16 04/01/16 21:01 03:05 03:05 Creatine Kinase 23 L CK-MB (CK-2) 0.71 1.15 Troponin I 0.058 0.111 NT-Pro-B Natriuret Pep 04/02/16 04/03/16 06:08 06:15 Creatine Kinase CK-MB (CK-2) Troponin I NT-Pro-B Natriuret Pep 4110 H 4060 H Impressions: Chest/Abdomen CTA 03/31/16 00:00 IMPRESSION: Scattered pulmonary nodularity with bilateral distribution, largest nodule measures 15 mm in the lateral segment of the left lower lobe. There is diffuse increased interstitial prominence and some areas of early consolidation present in both lower lobes. There is a moderate right pleural effusion and small left pleural effusion. Left hilar and subcarinal mediastinal adenopathy. NO PULMONARY EMBOLI. Assessment & Plan - Diagnosis (1) Acute hypoxemic respiratory failure Is this a current diagnosis for this admission?: YesPlan: Continue to wean oxygen. Patient did well off BiPAP overnight. (2) Acute on chronic diastolic (congestive) heart failure Is this a current diagnosis for this admission?: YesPlan: Patient currently compensated. Continue on Coreg, Lasix, valsartan, and transition nitroglycerin to Imdur. (3) Hospital acquired PNA Is this a current diagnosis for this admission?: YesPlan: Repeat chest x-ray reveals right lower lobe consolidation. Patient's current leukocytosis is likely falsely trending up due to her hemoconcentration. On Azactam and Levaquin. No recurrent fevers. Clinically improving. Attempt to taper antibiotic over next 48 hours. Pending sputum culture. Continue pulmonary toileting. (4) CAD (coronary artery disease) Qualifiers: Coronary Disease-Associated Artery/Lesion type: [place] artery [place] vs. transplanted heart: [place] heart Associated angina: without angina Qualified Code(s): I25.10 - Atherosclerotic heart disease of [place] coronary artery without angina pectoris Is this a current diagnosis for this admission?: Yes (5) COPD (chronic obstructive pulmonary disease) Qualifiers: COPD type: unspecified COPD Qualified Code(s): J44.9 - Chronic obstructive pulmonary disease, unspecified Is this a current diagnosis for this admission?: Yes (6) Hypertension Qualifiers: Hypertension type: essential hypertension Qualified Code(s): I10 - Essential (primary) hypertension Is this a current diagnosis for this admission?: Yes (7) Hypothyroidism Qualifiers: Hypothyroidism type: unspecified Qualified Code(s): E03.9 - Hypothyroidism, unspecified Is this a current diagnosis for this admission?: YesPlan: Continue Synthroid - Time Time Spent with patient: 25-34 minutes Medications reviewed and adjusted accordingly: Yes Anticipated discharge: Home with Homehealth Within: within 72 hours
[2016-04-03] MEDS ORDERED: CLONIDINE HCL 0.1 MG TABLET PO SCH (22:00)
[2016-04-04] MEDS: NITROGLYCERIN 2% OINTMENT 1 GM PACKET TP SCH ×2 (00:51→05:42)
[2016-04-04 05:34] LABS: ABSOLUTE EOSINOPHILS # (AUTO) 0.1 10^3/uL (0.0-0.6); ABSOLUTE LYMPHOCYTES (AUTO) 0.9 10^3/uL (0.5-4.7); ABSOLUTE MONOCYTES (AUTO) 1.7 10^3/uL (0.1-1.4); BASOPHILS % (AUTO) 0.2 % (0-2); HEMATOCRIT 30.8 % (36.0-47.0); HEMOGLOBIN 10.2 g/dL (12.0-15.5); HGB HCT DIFFERENCE -0.2; LYMPHOCYTES % (AUTO) 8.7 % (13-45); MEAN CORPUSCULAR HEMOGLOBIN 30.3 pg (27.0-33.4); MEAN CORPUSCULAR HGB CONC 33.3 g/dL (32.0-36.0); MEAN CORPUSCULAR VOLUME 91 fl (80-97); MONOCYTES % (AUTO) 15.7 % (3-13); RED BLOOD COUNT 3.39 10^6/uL (3.72-5.28); RED CELL DISTRIBUTION WIDTH 14.4 % (11.5-14.0); SEGMENTED NEUTROPHILS % (AUTO) 74.4 % (42-78); WHITE BLOOD COUNT 10.8 10^3/uL (4.0-10.5)
[2016-04-04] MEDS: AZTREONAM 1 GM in DEXTROSE 5%-WATER 50 ML IV SCH ×3 (05:42→22:59)
[2016-04-04 05:56] LABS: BLOOD UREA NITROGEN 34 mg/dL (7-20); CALCIUM 9.2 mg/dL (8.4-10.2); CHLORIDE 87 mmol/L (98-107); CREATININE RESULT 1.18 mg/dL (0.52-1.25); GLUCOSE 103 mg/dL (75-110); POTASSIUM 4.2 mmol/L (3.6-5.0)
[2016-04-04 06:04] LABS: ANION GAP 8 (5-19)
[2016-04-04 06:05] LABS: CARBON DIOXIDE 43 mmol/L (22-30)
[2016-04-04] MEDS: IPRATROPIUM/ALBUTEROL 0.5-2.5 MG/3 ML AMPUL NEB SCH ×2 (08:25→14:27)
[2016-04-04] MEDS ORDERED: FUROSEMIDE 20 MG TABLET PO SCH (10:00)
[2016-04-04] MEDS: FLUTICASONE/SALMETEROL DISKUS 100-50 MCG/DOSE IH SCH (10:45)
[2016-04-04] MEDS: MAGNESIUM OXIDE 400 MG TABLET PO SCH ×2 (10:46→17:58)
[2016-04-04] MEDS: POTASSIUM CHLORIDE 10 MEQ TABLET.SA PO SCH (10:46)
[2016-04-04] MEDS: CLONIDINE HCL 0.1 MG TABLET PO SCH ×2 (10:46→22:59)
[2016-04-04] MEDS: ISOSORBIDE MONONITRATE 60 MG TAB.ER.24H PO SCH (10:47)
[2016-04-04] MEDS: CARVEDILOL 6.25 MG TABLET PO SCH ×2 (10:47→22:59)
[2016-04-04] MEDS: DOCUSATE SODIUM 100 MG CAPSULE PO SCH ×2 (10:48→17:58)
[2016-04-04] MEDS: VALSARTAN 160 MG TABLET PO SCH (10:49)
[2016-04-04] MEDS: ASPIRIN 325 MG TABLET, ENT COATED PO SCH (10:49)
[2016-04-04] MEDS: ENOXAPARIN SODIUM INJ 30 MG/0.3 ML DISP.SYRIN SUBCUT SCH (10:52)
[2016-04-04] MEDS: LEVOTHYROXINE SODIUM 0.05 MG TABLET PO SCH (10:52)
[2016-04-04] MEDS ORDERED: ALBUTEROL SULFATE HFA (90 MCG/PUFF) 200 PUFF/8.5 GM MDI IH PRN (15:41)
[2016-04-05] MEDS: ACETAMINOPHEN 325 MG TABLET PO PRN (01:12)
[2016-04-05] MEDS: AZTREONAM 1 GM in DEXTROSE 5%-WATER 50 ML IV SCH (05:28)
[2016-04-05 08:32] LABS: BLOOD UREA NITROGEN 38 mg/dL (7-20); CALCIUM 9.1 mg/dL (8.4-10.2); CHLORIDE 89 mmol/L (98-107); CREATININE RESULT 1.16 mg/dL (0.52-1.25); GLUCOSE 100 mg/dL (75-110); POTASSIUM 4.3 mmol/L (3.6-5.0)
[2016-04-05 08:52] LABS: SODIUM 135.3 mmol/L (137-145)
[2016-04-05 09:02] LABS: ANION GAP 5 (5-19)
[2016-04-05 09:03] LABS: CARBON DIOXIDE 41 mmol/L (22-30)
[2016-04-05] MEDS: POTASSIUM CHLORIDE 10 MEQ TABLET.SA PO SCH (11:17)
[2016-04-05] MEDS: FUROSEMIDE 40 MG TABLET PO SCH (11:18)
[2016-04-05] MEDS: CARVEDILOL 6.25 MG TABLET PO SCH ×2 (11:19→21:42)
[2016-04-05] MEDS: DOCUSATE SODIUM 100 MG CAPSULE PO SCH ×2 (11:19→17:54)
[2016-04-05] MEDS: ASPIRIN 325 MG TABLET, ENT COATED PO SCH (11:19)
[2016-04-05] MEDS: LEVOFLOXACIN 750 MG TABLET PO SCH (11:19)
[2016-04-05] MEDS: VALSARTAN 160 MG TABLET PO SCH (11:20)
[2016-04-05] MEDS: LEVOTHYROXINE SODIUM 0.05 MG TABLET PO SCH (11:20)
[2016-04-05] MEDS: ISOSORBIDE MONONITRATE 60 MG TAB.ER.24H PO SCH (11:20)
[2016-04-05] MEDS: CLONIDINE HCL 0.1 MG TABLET PO SCH ×2 (11:21→21:42)
[2016-04-05] MEDS: MAGNESIUM OXIDE 400 MG TABLET PO SCH ×2 (11:21→21:42)
[2016-04-05] MEDS: ENOXAPARIN SODIUM INJ 30 MG/0.3 ML DISP.SYRIN SUBCUT SCH (11:23)
[2016-04-05] MEDS: FLUTICASONE/SALMETEROL DISKUS 100-50 MCG/DOSE IH SCH (11:24)
[2016-04-05] MEDS: TIOTROPIUM BROMIDE DPI 5 CAP/KIT (18 MCG/CAP) IH SCH (11:24)
--- NOTE | 2016-04-05 12:41 | PDOC PROGRESS REPORT ---
Subjective Progress Note for:: 04/04/16 Subjective:: Patient reports she is breathing much better. She still using oxygen. [place] removed today. Patient denies chest pain, shortness of breath, abdominal pain, nausea, vomiting, fevers, chills, diarrhea, constipation, headache, new onset weakness. Physical Exam Vital Signs: Temp Pulse Resp BP Pulse Ox 97.8 F 105 H 20 149/64 H 100 04/04/16 11:03 04/04/16 11:03 04/04/16 11:03 04/04/16 11:03 04/04/16 11:03 Intake & Output 04/03/16 04/04/16 04/05/16 06:59 06:59 06:59 Intake Total 400 1215 Output Total 1250 900 Balance -850 315 Weight 43.5 kg 43.4 kg Exam: General: Awake alert and oriented x3, no acute respiratory distress HEENT: AT/NC, PERRL, EOMI, oropharynx is moist, pink, no scleral icterus, no conjunctival injection Neck: noJVD, trachea midline Chest: occasional right lower lobe rhonchi CV: Regular rate and rhythm, normal S1 and S2, no murmur, rub, or gallop Abdomen: Soft, nontender to palpation, nondistended, active bowel sounds; no rebound, rigidity, or guarding Extremities: No cyanosis, clubbing or edema Neuro: Cranial nerves II through XII are grossly intact without focal deficits; awake alert and oriented x3 Psych: Normal mood and affect Results Laboratory Results: 04/04/16 05:04 04/04/16 05:04 04/04/16 04/04/16 05:04 05:04 WBC 10.8 H RBC 3.39 L Hgb 10.2 L Hct 30.8 L MCV 91 MCH 30.3 MCHC 33.3 RDW 14.4 H Plt Count 355 Seg Neutrophils % 74.4 Lymphocytes % 8.7 L Monocytes % 15.7 H Eosinophils % 1.0 Basophils % 0.2 Absolute Neutrophils 8.0 Absolute Lymphocytes 0.9 Absolute Monocytes 1.7 H Absolute Eosinophils 0.1 Absolute Basophils 0.0 Sodium 138.0 Potassium 4.2 Chloride 87 L Carbon Dioxide 43 H* Anion Gap 8 BUN 34 H Creatinine 1.18 Est GFR ( Amer) 52 L Est GFR (Non-Af Amer) 43 L Glucose 103 Calcium 9.2 Magnesium 2.0 03/31/16 03/31/16 03/31/16 14:59 14:59 21:01 Creatine Kinase 21 L 25 L CK-MB (CK-2) 0.53 Troponin I 0.054 NT-Pro-B Natriuret Pep 03/31/16 04/01/16 04/01/16 21:01 03:05 03:05 Creatine Kinase 23 L CK-MB (CK-2) 0.71 1.15 Troponin I 0.058 0.111 NT-Pro-B Natriuret Pep 04/02/16 04/03/16 06:08 06:15 Creatine Kinase CK-MB (CK-2) Troponin I NT-Pro-B Natriuret Pep 4110 H 4060 H Impressions: Chest/Abdomen CTA 03/31/16 00:00 IMPRESSION: Scattered pulmonary nodularity with bilateral distribution, largest nodule measures 15 mm in the lateral segment of the left lower lobe. There is diffuse increased interstitial prominence and some areas of early consolidation present in both lower lobes. There is a moderate right pleural effusion and small left pleural effusion. Left hilar and subcarinal mediastinal adenopathy. NO PULMONARY EMBOLI. Chest X-Ray 04/03/16 06:00 IMPRESSION: Right lower lobe pneumonia. No significant change. Assessment & Plan - Diagnosis (1) Acute hypoxemic respiratory failure Is this a current diagnosis for this admission?: YesPlan: Continue to wean oxygen. Longer requiring BiPAP. Secondary to combined [facility] associated pneumonia and acute on chronic congestive heart failure. (2) Acute on chronic diastolic (congestive) heart failure Is this a current diagnosis for this admission?: YesPlan: Patient currently compensated. Continue on Coreg, Lasix, valsartan, and transition nitroglycerin to Imdur. Patient continues to diurese well. (3) Hospital acquired PNA Is this a current diagnosis for this admission?: YesPlan: Repeat chest x-ray reveals right lower lobe consolidation. Patient's leukocytosis is improving. On Azactam and Levaquin. No recurrent fevers. Clinically improving. Attempt to taper antibiotic over next 48 hours. Pending sputum culture. Continue pulmonary toileting. (4) CAD (coronary artery disease) Qualifiers: Coronary Disease-Associated Artery/Lesion type: [place] artery [place] vs. transplanted heart: [place] heart Associated angina: without angina Qualified Code(s): I25.10 - Atherosclerotic heart disease of [place] coronary artery without angina pectoris Is this a current diagnosis for this admission?: Yes (5) COPD (chronic obstructive pulmonary disease) Qualifiers: COPD type: unspecified COPD Qualified Code(s): J44.9 - Chronic obstructive pulmonary disease, unspecified Is this a current diagnosis for this admission?: YesPlan: Transition to Spiriva and albuterol. No need for corticosteroids at this time. Continue Advair. (6) Hypertension Qualifiers: Hypertension type: essential hypertension Qualified Code(s): I10 - Essential (primary) hypertension Is this a current diagnosis for this admission?: YesPlan: Improved control. Transition to clonidine 0.1 by mouth twice a day. Plan to transition this to 0.1 mg by mouth daily at bedtime beginning on 04/06/16. With close of patient being of oral clonidine prior to discharge. Continue clonidine , nitroglycerin, Coreg, clonidine, and valsartan. (7) Hypothyroidism Qualifiers: Hypothyroidism type: unspecified Qualified Code(s): E03.9 - Hypothyroidism, unspecified Is this a current diagnosis for this admission?: YesPlan: Continue Synthroid - Time Time Spent with patient: 25-34 minutes Medications reviewed and adjusted accordingly: Yes
--- NOTE | 2016-04-05 12:47 | PDOC PROGRESS REPORT ---
Subjective Progress Note for:: 04/05/16 Subjective:: Patient reports she's feeling significant better today. Patient denies chest pain, abdominal pain, nausea, vomiting, fevers, chills, diarrhea, constipation, headache, new onset weakness. Patient ambulated today with physical therapy. Physical Exam Vital Signs: Temp Pulse Resp BP Pulse Ox 97.8 F 94 18 168/92 H 98 04/05/16 07:21 04/05/16 07:21 04/05/16 07:21 04/05/16 07:21 04/05/16 07:21 Intake & Output 04/04/16 04/05/16 04/06/16 06:59 06:59 06:59 Intake Total 1215 694 Output Total 900 200 Balance 315 494 Weight 43.4 kg 43.5 kg Exam: General: Awake alert and oriented x3, no acute respiratory distress HEENT: AT/NC, PERRL, EOMI, oropharynx is moist, pink, no scleral icterus, no conjunctival injection Neck: no JVD, trachea midline Chest: Clear to auscultation bilaterally CV: Regular rate and rhythm, normal S1 and S2, no murmur, rub, or gallop Abdomen: Soft, nontender to palpation, nondistended, active bowel sounds; no rebound, rigidity, or guarding Extremities: No cyanosis, clubbing or edema Neuro: Cranial nerves II through XII are grossly intact without focal deficits; awake alert and oriented x3 Psych: Normal mood and affect Results Laboratory Results: 04/04/16 05:04 04/05/16 07:57 04/05/16 07:57 Sodium 135.3 L Potassium 4.3 Chloride 89 L Carbon Dioxide 41 H* Anion Gap 5 BUN 38 H Creatinine 1.16 Est GFR ( Amer) 53 L Est GFR (Non-Af Amer) 44 L Glucose 100 Calcium 9.1 03/31/16 03/31/16 03/31/16 14:59 14:59 21:01 Creatine Kinase 21 L 25 L CK-MB (CK-2) 0.53 Troponin I 0.054 NT-Pro-B Natriuret Pep 03/31/16 04/01/16 04/01/16 21:01 03:05 03:05 Creatine Kinase 23 L CK-MB (CK-2) 0.71 1.15 Troponin I 0.058 0.111 NT-Pro-B Natriuret Pep 04/02/16 04/03/16 06:08 06:15 Creatine Kinase CK-MB (CK-2) Troponin I NT-Pro-B Natriuret Pep 4110 H 4060 H Impressions: Chest/Abdomen CTA 03/31/16 00:00 IMPRESSION: Scattered pulmonary nodularity with bilateral distribution, largest nodule measures 15 mm in the lateral segment of the left lower lobe. There is diffuse increased interstitial prominence and some areas of early consolidation present in both lower lobes. There is a moderate right pleural effusion and small left pleural effusion. Left hilar and subcarinal mediastinal adenopathy. NO PULMONARY EMBOLI. Chest X-Ray 04/03/16 06:00 IMPRESSION: Right lower lobe pneumonia. No significant change. Assessment & Plan - Diagnosis (1) Acute hypoxemic respiratory failure Is this a current diagnosis for this admission?: YesPlan: Continue to wean oxygen. Longer requiring BiPAP. Secondary to combined healthcare associated pneumonia and acute on chronic congestive heart failure. (2) Acute on chronic diastolic (congestive) heart failure Is this a current diagnosis for this admission?: YesPlan: Echo done on 03/05/2016 reveals a grossly normal EF, borderline LVH, and mild diastolic dysfunction. Patient currently compensated. Continue on Coreg, Lasix, valsartan, and transition nitroglycerin to Imdur. (3) Hospital acquired PNA Is this a current diagnosis for this admission?: YesPlan: Repeat chest x-ray reveals right lower lobe consolidation. Patient's leukocytosis is improving. On Azactam and Levaquin. No recurrent fevers. Clinically improving. Transition to Levaquin alone starting today. Pending sputum culture. Continue pulmonary toileting. (4) CAD (coronary artery disease) Qualifiers: Coronary Disease-Associated Artery/Lesion type: [place] artery [place] vs. transplanted heart: [place] heart Associated angina: without angina Qualified Code(s): I25.10 - Atherosclerotic heart disease of [place] coronary artery without angina pectoris Is this a current diagnosis for this admission?: Yes (5) COPD (chronic obstructive pulmonary disease) Qualifiers: COPD type: unspecified COPD Qualified Code(s): J44.9 - Chronic obstructive pulmonary disease, unspecified Is this a current diagnosis for this admission?: YesPlan: Transition to Spiriva and albuterol. No need for corticosteroids at this time. Continue Advair. (6) Hypertension Qualifiers: Hypertension type: essential hypertension Qualified Code(s): I10 - Essential (primary) hypertension Is this a current diagnosis for this admission?: YesPlan: Improved control. Transition to clonidine 0.1 by mouth twice a day. Plan to transition this to 0.1 mg by mouth daily at bedtime beginning on 04/06/16. Continue clonidine, nitroglycerin, Coreg, and valsartan. (7) Hypothyroidism Qualifiers: Hypothyroidism type: unspecified Qualified Code(s): E03.9 - Hypothyroidism, unspecified Is this a current diagnosis for this admission?: YesPlan: Continue Synthroid - Time Time Spent with patient: 25-34 minutes Medications reviewed and adjusted accordingly: Yes
[2016-04-06] MEDS: ACETAMINOPHEN 325 MG TABLET PO PRN ×2 (03:19→23:33)
[2016-04-06 05:31] LABS: ABSOLUTE BASOPHILS # (AUTO) 0.1 10^3/uL (0.0-0.2); ABSOLUTE EOSINOPHILS # (AUTO) 0.3 10^3/uL (0.0-0.6); ABSOLUTE LYMPHOCYTES (AUTO) 1.1 10^3/uL (0.5-4.7); ABSOLUTE MONOCYTES (AUTO) 1.9 10^3/uL (0.1-1.4); ABSOLUTE NEUT (AUTO) 8.6 10^3/uL (1.7-8.2); BASOPHILS % (AUTO) 0.5 % (0-2); EOSINOPHILS % (AUTO) 2.4 % (0-6); HEMOGLOBIN 9.6 g/dL (12.0-15.5); HGB HCT DIFFERENCE -0.2; LYMPHOCYTES % (AUTO) 9.3 % (13-45); MEAN CORPUSCULAR HEMOGLOBIN 30.3 pg (27.0-33.4); MEAN CORPUSCULAR HGB CONC 32.9 g/dL (32.0-36.0); MEAN CORPUSCULAR VOLUME 92 fl (80-97); MONOCYTES % (AUTO) 15.6 % (3-13); RED BLOOD COUNT 3.16 10^6/uL (3.72-5.28); RED CELL DISTRIBUTION WIDTH 14.2 % (11.5-14.0); SEGMENTED NEUTROPHILS % (AUTO) 72.2 % (42-78)
[2016-04-06 06:07] LABS: BLOOD UREA NITROGEN 38 mg/dL (7-20); CALCIUM 9.1 mg/dL (8.4-10.2); CREATININE RESULT 1.12 mg/dL (0.52-1.25); GLUCOSE 104 mg/dL (75-110)
[2016-04-06 06:08] LABS: CHLORIDE 90 mmol/L (98-107); POTASSIUM 4.2 mmol/L (3.6-5.0); SODIUM 136.7 mmol/L (137-145)
[2016-04-06 06:22] LABS: ANION GAP 5 (5-19)
[2016-04-06 06:24] LABS: CARBON DIOXIDE 42 mmol/L (22-30)
[2016-04-06] MEDS: ISOSORBIDE MONONITRATE 60 MG TAB.ER.24H PO SCH (11:23)
[2016-04-06] MEDS: LEVOTHYROXINE SODIUM 0.05 MG TABLET PO SCH (11:23)
[2016-04-06] MEDS: MAGNESIUM OXIDE 400 MG TABLET PO SCH ×2 (11:23→18:44)
[2016-04-06] MEDS: VALSARTAN 160 MG TABLET PO SCH (11:24)
[2016-04-06] MEDS: ASPIRIN 325 MG TABLET, ENT COATED PO SCH (11:24)
[2016-04-06] MEDS: FUROSEMIDE 40 MG TABLET PO SCH (11:24)
[2016-04-06] MEDS: POTASSIUM CHLORIDE 10 MEQ TABLET.SA PO SCH (11:24)
[2016-04-06] MEDS: CARVEDILOL 6.25 MG TABLET PO SCH ×2 (11:25→21:48)
[2016-04-06] MEDS: FLUTICASONE/SALMETEROL DISKUS 100-50 MCG/DOSE IH SCH (11:26)
[2016-04-06] MEDS: TIOTROPIUM BROMIDE DPI 5 CAP/KIT (18 MCG/CAP) IH SCH (11:27)
[2016-04-06] MEDS: DOCUSATE SODIUM 100 MG CAPSULE PO SCH ×2 (11:29→18:44)
[2016-04-06] MEDS: ENOXAPARIN SODIUM INJ 30 MG/0.3 ML DISP.SYRIN SUBCUT SCH (11:30)
--- NOTE | 2016-04-06 16:10 | PDOC PROGRESS REPORT ---
Subjective Progress Note for:: 04/06/16 Subjective:: Patient reports she's feeling significant better today. Patient denies chest pain, abdominal pain, nausea, vomiting, fevers, chills, diarrhea, constipation, headache, new onset weakness. Physical Exam Vital Signs: Temp Pulse Resp BP Pulse Ox 97.9 F 95 20 150/59 H 97 04/06/16 03:12 04/06/16 03:12 04/06/16 03:12 04/06/16 03:12 04/06/16 03:12 Intake & Output 04/05/16 04/06/16 04/07/16 06:59 06:59 06:59 Intake Total 694 650 Output Total 200 Balance 494 650 Weight 43.5 kg 44.9 kg Exam: General: Awake alert and oriented x3, no acute respiratory distress HEENT: AT/NC, PERRL, EOMI, oropharynx is moist, pink, no scleral icterus, no conjunctival injection Neck: no JVD, trachea midline Chest: Clear to auscultation bilaterally, no wheezes rhonchi or rales CV: Regular rate and rhythm, normal S1 and S2, no murmur, rub, or gallop Abdomen: Soft, nontender to palpation, nondistended, active bowel sounds; no rebound, rigidity, or guarding Extremities: No cyanosis, clubbing or edema Neuro: Cranial nerves II through XII are grossly intact without focal deficits; awake alert and oriented x3 Psych: Normal mood and affect Results Laboratory Results: 04/06/16 05:18 04/06/16 05:18 04/05/16 04/06/16 04/06/16 07:57 05:18 05:18 WBC 12.0 H RBC 3.16 L Hgb 9.6 L Hct 29.0 L MCV 92 MCH 30.3 MCHC 32.9 RDW 14.2 H Plt Count 340 Seg Neutrophils % 72.2 Lymphocytes % 9.3 L Monocytes % 15.6 H Eosinophils % 2.4 Basophils % 0.5 Absolute Neutrophils 8.6 H Absolute Lymphocytes 1.1 Absolute Monocytes 1.9 H Absolute Eosinophils 0.3 Absolute Basophils 0.1 Sodium 135.3 L 136.7 L Potassium 4.3 4.2 Chloride 89 L 90 L Carbon Dioxide 41 H* 42 H* Anion Gap 5 5 BUN 38 H 38 H Creatinine 1.16 1.12 Est GFR ( Amer) 53 L 56 L Est GFR (Non-Af Amer) 44 L 46 L Glucose 100 104 Calcium 9.1 9.1 03/31/16 03/31/16 03/31/16 14:59 14:59 21:01 Creatine Kinase 21 L 25 L CK-MB (CK-2) 0.53 Troponin I 0.054 NT-Pro-B Natriuret Pep 03/31/16 04/01/16 04/01/16 21:01 03:05 03:05 Creatine Kinase 23 L CK-MB (CK-2) 0.71 1.15 Troponin I 0.058 0.111 NT-Pro-B Natriuret Pep 04/02/16 04/03/16 06:08 06:15 Creatine Kinase CK-MB (CK-2) Troponin I NT-Pro-B Natriuret Pep 4110 H 4060 H Impressions: Chest/Abdomen CTA 03/31/16 00:00 IMPRESSION: Scattered pulmonary nodularity with bilateral distribution, largest nodule measures 15 mm in the lateral segment of the left lower lobe. There is diffuse increased interstitial prominence and some areas of early consolidation present in both lower lobes. There is a moderate right pleural effusion and small left pleural effusion. Left hilar and subcarinal mediastinal adenopathy. NO PULMONARY EMBOLI. Chest X-Ray 04/03/16 06:00 IMPRESSION: Right lower lobe pneumonia. No significant change. Assessment & Plan - Diagnosis (1) Acute hypoxemic respiratory failure Is this a current diagnosis for this admission?: YesPlan: Continue to wean oxygen. Longer requiring BiPAP. Secondary to combined healthcare associated pneumonia and acute on chronic congestive heart failure. (2) Acute on chronic diastolic (congestive) heart failure Is this a current diagnosis for this admission?: YesPlan: Echo done on 03/05/2016 reveals a grossly normal EF, borderline LVH, and mild diastolic dysfunction. Patient currently compensated. Continue on Coreg, Lasix, valsartan, and Imdur. (3) Hospital acquired PNA Is this a current diagnosis for this admission?: YesPlan: Repeat chest x-ray reveals right lower lobe consolidation. Patient's leukocytosis is improving. Have transitioned patient to Levaquin alone with no further fever. Plan to discharge within 24 hours if this persists. (4) CAD (coronary artery disease) Qualifiers: Coronary Disease-Associated Artery/Lesion type: [place] artery [place] vs. transplanted heart: [place] heart Associated angina: without angina Qualified Code(s): I25.10 - Atherosclerotic heart disease of [place] coronary artery without angina pectoris Is this a current diagnosis for this admission?: Yes (5) COPD (chronic obstructive pulmonary disease) Qualifiers: COPD type: unspecified COPD Qualified Code(s): J44.9 - Chronic obstructive pulmonary disease, unspecified Is this a current diagnosis for this admission?: YesPlan: Transition to Spiriva and albuterol. No need for corticosteroids at this time. Continue Advair. (6) Hypertension Qualifiers: Hypertension type: essential hypertension Qualified Code(s): I10 - Essential (primary) hypertension Is this a current diagnosis for this admission?: YesPlan: Improved control. Transition to clonidine 0.1 mg po QHS. Continue clonidine, nitroglycerin, Coreg, and valsartan. Hope to have patient off of po clonidine and onto clonidine patch by discharge. (7) Hypothyroidism Qualifiers: Hypothyroidism type: unspecified Qualified Code(s): E03.9 - Hypothyroidism, unspecified Is this a current diagnosis for this admission?: YesPlan: Continue Synthroid - Time Time Spent with patient: 25-34 minutes Medications reviewed and adjusted accordingly: Yes
[2016-04-06] MEDS: CLONIDINE HCL 0.1 MG TABLET PO SCH (21:48)
[2016-04-07] MEDS ORDERED: CLONIDINE 0.3 MG/24 HR PATCH.TDWK TD SCH (10:00)
[2016-04-07] MEDS: VALSARTAN 160 MG TABLET PO SCH (10:51)
[2016-04-07] MEDS: LEVOTHYROXINE SODIUM 0.05 MG TABLET PO SCH (10:51)
[2016-04-07] MEDS: ASPIRIN 325 MG TABLET, ENT COATED PO SCH (10:51)
[2016-04-07] MEDS: ISOSORBIDE MONONITRATE 60 MG TAB.ER.24H PO SCH (10:51)
[2016-04-07] MEDS: DOCUSATE SODIUM 100 MG CAPSULE PO SCH ×2 (10:52→17:13)
[2016-04-07] MEDS: MAGNESIUM OXIDE 400 MG TABLET PO SCH ×2 (10:52→17:13)
[2016-04-07] MEDS: CARVEDILOL 6.25 MG TABLET PO SCH (10:52)
[2016-04-07] MEDS: FUROSEMIDE 40 MG TABLET PO SCH (10:53)
[2016-04-07] MEDS: POTASSIUM CHLORIDE 10 MEQ TABLET.SA PO SCH (10:53)
[2016-04-07] MEDS: LEVOFLOXACIN 750 MG TABLET PO SCH (11:30)
[2016-04-07] MEDS: FLUTICASONE/SALMETEROL DISKUS 100-50 MCG/DOSE IH SCH (11:40)
[2016-04-07] MEDS: ENOXAPARIN SODIUM INJ 30 MG/0.3 ML DISP.SYRIN SUBCUT SCH (11:41)
[2016-04-07] MEDS: TIOTROPIUM BROMIDE DPI 5 CAP/KIT (18 MCG/CAP) IH SCH (11:41)
--- NOTE | 2016-04-07 11:44 | Progress Note ---
Provider Note Provider Note: Patient found to be 85% at rest without oxygen. patient requires 2L oxygen with rest and 3L with ambulation.
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
[2016-04-08] MEDS: CLONIDINE HCL 0.1 MG TABLET PO SCH (00:40)
[2016-04-08] MEDS: CARVEDILOL 6.25 MG TABLET PO SCH ×2 (00:42→10:06)
[2016-04-08] MEDS: ENOXAPARIN SODIUM INJ 30 MG/0.3 ML DISP.SYRIN SUBCUT SCH (10:02)
[2016-04-08] MEDS: FLUTICASONE/SALMETEROL DISKUS 100-50 MCG/DOSE IH SCH (10:03)
[2016-04-08] MEDS: TIOTROPIUM BROMIDE DPI 5 CAP/KIT (18 MCG/CAP) IH SCH (10:03)
[2016-04-08] MEDS: ASPIRIN 325 MG TABLET, ENT COATED PO SCH (10:06)
[2016-04-08] MEDS: VALSARTAN 160 MG TABLET PO SCH (10:06)
[2016-04-08] MEDS: FUROSEMIDE 40 MG TABLET PO SCH (10:06)
[2016-04-08] MEDS: MAGNESIUM OXIDE 400 MG TABLET PO SCH (10:06)
[2016-04-08] MEDS: LEVOTHYROXINE SODIUM 0.05 MG TABLET PO SCH (10:07)
[2016-04-08] MEDS: POTASSIUM CHLORIDE 10 MEQ TABLET.SA PO SCH (10:07)
[2016-04-08] MEDS: ISOSORBIDE MONONITRATE 60 MG TAB.ER.24H PO SCH (10:07)
[2016-04-08 13:03] VITALS: BP 144/64
[2016-04-08] MEDS ORDERED: ONDANSETRON 4 MG TAB.RAPDIS ONE (15:26)
[2016-04-08] MEDS ORDERED: ONDANSETRON 4 MG TAB.RAPDIS PO ONE (16:00)
--- NOTE | 2016-04-08 16:12 | PDOC PROGRESS REPORT ---
Subjective Progress Note for:: 04/08/16 Subjective:: Patient without complaints. Respiratory status at baseline. Patient denies fever, chills, headache, new focal weakness, chest pain, shortness of breath, abdominal pain, nausea, vomiting, diarrhea, constipation. Physical Exam Vital Signs: Temp Pulse Resp BP Pulse Ox 98.0 F 89 16 144/64 H 100 04/08/16 12:50 04/08/16 14:00 04/08/16 12:50 04/08/16 12:50 04/08/16 12:50 Intake & Output 04/07/16 04/08/16 04/09/16 06:59 06:59 06:59 Intake Total 600 1359 Balance 600 1359 Weight 45.2 kg 46 kg GENERAL: No acute distress HEENT: Conjunctiva clear, nonicteric, moist mucous membranes, no JVD, midline trachea RESPIRATORY: Faint bilateral wheezes, good air excursion CARDIAC: Regular rate and rhythm, no murmurs/gallops/rubs ABDOMEN: Soft, nondistended, nontender, positive bowel sounds, no rebound, no guarding EXTREMETIES: No edema, cyanosis, clubbing NEUROLOGIC: Alert, oriented to person/place/time, CN's grossly intact, no focal deficits SKIN: No rash, wounds PSYCH: Normal mood, normal affect Results Laboratory Results: 04/06/16 05:18 04/06/16 05:18 03/31/16 03/31/16 03/31/16 14:59 14:59 21:01 Creatine Kinase 21 L 25 L CK-MB (CK-2) 0.53 Troponin I 0.054 NT-Pro-B Natriuret Pep 03/31/16 04/01/16 04/01/16 21:01 03:05 03:05 Creatine Kinase 23 L CK-MB (CK-2) 0.71 1.15 Troponin I 0.058 0.111 NT-Pro-B Natriuret Pep 04/02/16 04/03/16 06:08 06:15 Creatine Kinase CK-MB (CK-2) Troponin I NT-Pro-B Natriuret Pep 4110 H 4060 H Impressions: Chest/Abdomen CTA 03/31/16 00:00 IMPRESSION: Scattered pulmonary nodularity with bilateral distribution, largest nodule measures 15 mm in the lateral segment of the left lower lobe. There is diffuse increased interstitial prominence and some areas of early consolidation present in both lower lobes. There is a moderate right pleural effusion and small left pleural effusion. Left hilar and subcarinal mediastinal adenopathy. NO PULMONARY EMBOLI. Chest X-Ray 04/03/16 06:00 IMPRESSION: Right lower lobe pneumonia. No significant change. Assessment & Plan - Diagnosis (1) Respiratory failure Qualifiers: Chronicity: acute Respiratory failure complication: hypercapnia Qualified Code(s): J96.02 - Acute respiratory failure with hypercapnia Is this a current diagnosis for this admission?: Yes (2) Acute exacerbation of CHF (congestive heart failure) Qualifiers: Congestive heart failure type: unspecified congestive heart failure type Qualified Code(s): I50.9 - Heart failure, unspecified Is this a current diagnosis for this admission?: Yes (3) CAD (coronary artery disease) Qualifiers: Coronary Disease-Associated Artery/Lesion type: [place] artery [place] vs. transplanted heart: [place] heart Associated angina: without angina Qualified Code(s): I25.10 - Atherosclerotic heart disease of [place] coronary artery without angina pectoris Is this a current diagnosis for this admission?: Yes (4) COPD (chronic obstructive pulmonary disease) Qualifiers: COPD type: unspecified COPD Qualified Code(s): J44.9 - Chronic obstructive pulmonary disease, unspecified Is this a current diagnosis for this admission?: Yes (5) Hypertension Qualifiers: Hypertension type: essential hypertension Qualified Code(s): I10 - Essential (primary) hypertension Is this a current diagnosis for this admission?: Yes (6) Hypothyroidism Qualifiers: Hypothyroidism type: unspecified Qualified Code(s): E03.9 - Hypothyroidism, unspecified Is this a current diagnosis for this admission?: Yes (7) Hypokalemia Is this a current diagnosis for this admission?: Yes - Time Time Spent with patient: 15-24 minutes Disposition: Stable for discharge home with home health services and home oxygen.
== END 2016-04-08 16:09 | disposition home health service (06) | DRG 291 ==
LOC: ER 08:48 → UNDOADMIN 11:56 → EH 11:56 → EEVIPCON 11:56 → EH 13:12 → 3S 13:12
PROVIDERS: ADMIT Family Medicine; ATTEND Family Medicine
PROC: 5A09557 Assistance with Respiratory Ventilation, Greater than 96 Consecutive Hours, Continuous Positive Airway Pressure (ICD-10-PCS; principal; 2016-03-31)
DX: I11.0 Hypertensive heart disease with heart failure (principal); J96.02 Acute respiratory failure with hypercapnia; J96.01 Acute respiratory failure with hypoxia; J18.9 Pneumonia, unspecified organism; I16.1 Hypertensive emergency; E44.1 Mild protein-calorie malnutrition; Z68.1 Body mass index [BMI] 19.9 or less, adult; I50.33 Acute on chronic diastolic (congestive) heart failure; I25.10 Atherosclerotic heart disease of native coronary artery without angina pectoris; J45.909 Unspecified asthma, uncomplicated; E03.9 Hypothyroidism, unspecified; J44.9 Chronic obstructive pulmonary disease, unspecified; E87.6 Hypokalemia; F41.9 Anxiety disorder, unspecified; Z79.82 Long term (current) use of aspirin; Z87.891 Personal history of nicotine dependence; Z82.3 Family history of stroke; Z82.49 Family history of ischemic heart disease and other diseases of the circulatory system; Z82.5 Family history of asthma and other chronic lower respiratory diseases; Z79.899 Other long term (current) drug therapy; Z78.1 Physical restraint status
CPT/HCPCS: 36415; 36600; 71010; 71275; 80048; 80076; 82550; 82553; 82803; 82962; 83735; 83880; 84484; 85025; 87040; 94660; G8978-GP; G8979-GP; J0456; J0696; J1650; J1940; J2060; J2405; J3490; J7620; S0119